=== PATIENT | female | born 1985 | race Caucasian/White ===

== ENCOUNTER 2019-12-22 12:38 | Outpatient (CLI) | payer OTHER ==
--- NOTE | 2019-12-22 14:00 | MRI ---
MRI lumbar spine noncontrast HISTORY: Low back pain with left leg radiculopathy. FINDINGS: The conus medullaris has a normal appearance and terminates at the L1 level. Vertebral body heights and alignment are maintained. Bone marrow signal is within normal limits. T12-L1, L1-2: Central canal and neural foramina are patent. L2-3: Diffuse posterior disc bulge. Mild osteophytosis and posterior ligamentous thickening. Congenit ally small central canal. There is moderate stenosis of the central canal and mild stenosis of each neural foramen. L3-4: Minimal disc bulge. Central canal is patent. Mild to moderate left foraminal stenosis. L4-5: Mild diffuse posterior disc bulge. Thecal sac remains patent. Neural foramina are patent. L5-S1: Small left posterolateral disc protrusion and diffuse posterior disc bulge. There is contact o f each S1 nerve root. Greater on the left than the right. Posterior degenerative changes and diffuse disc bulge are also present. Mild to moderate stenosis of the central canal and each neural f oramen. IMPRESSION : Small left posterior disc protrusion at the lumbosacral junction, slightly compressing the left S1 ne rve root origin. Multilevel degenerative changes, including central canal and foraminal stenoses. Central canal stenos is is most pronounced (moderate) at the L2-3 level.
== END 2019-12-22 12:39 | disposition home or self-care (01) ==
LOC: SCSMRI 12:38
PROVIDERS: ATTEND Family Medicine
DX: M47.26 Other spondylosis with radiculopathy, lumbar region (principal); M51.27 Other intervertebral disc displacement, lumbosacral region; M48.061 Spinal stenosis, lumbar region without neurogenic claudication; M48.07 Spinal stenosis, lumbosacral region
CPT/HCPCS: 72148

== ENCOUNTER 2020-02-03 12:37 | Outpatient (CLI) | payer OTHER ==
--- NOTE | 2020-02-03 14:11 | RAD ---
LUMBAR SPINE 4 VIEWS: Lateral views were obtained with neutral, flexion, and extension. INDICATION: Lumbar pain with radiculopathy. FINDINGS: Lumbar vertebrae maintain normal height and alignment in the lateral projection. Mild loss of disk s pace at L5-S1. The other disk spaces appear normally maintained. No evidence of spondylolisthesis. Alignment appears preserved with flexion and extension. Slight curvature to the left in the AP projection may be positional. IMPRESSION: Mild loss of disk height at L5-S1. The lumbar spine is otherwise unremarkable. POS: AGW
--- NOTE | 2020-02-03 14:13 | RAD ---
CERVICAL SPINE 4 VIEWS: HISTORY: Neck pain. FINDINGS: Cervical vertebrae maintain normal height and alignment. Disk spaces are normally maintained. Poste rior elements appear unremarkable. Tiny anterior osteophytes are seen at the C5-6 level and minimal spurring seen from C4, C5, and C6 ve rtebrae. Alignment appears normally preserved with flexion and extension. IMPRESSION: Mild degenerative spurring is seen as described. Cervical spine otherwise unremarkable. POS: AGW
--- NOTE | 2020-02-03 14:43 | MRI ---
MRI cervical spine noncontrast: 02/03/2020 HISTORY: 34-year-old female with cervicalgia radiating to upper extremities M 54.2 neck pain FINDINGS: Vertebral body heights are maintained. Bone marrow signal is normal. No high-grade disc space narrowi ng at any level. Cervical spinal cord is normal in size and signal. No significant central spinal canal stenosis at any level. Mild to moderate left facet DJD at C4-5 and C5-6. The associated facet b yenifer hypertrophy and small left uncinate process osteophytes at those levels, result in moderate left neural foraminal stenosis at C4-5, but no significant left neural foraminal stenosis at C5-6. Th ere is no significant right-sided neural foraminal stenosis at any level. Small disc protrusions or disc-osteophyte complexes indent the thecal sac at C4-5, C5-6, and C6-7, without causing high-grade c entral spinal canal stenosis. IMPRESSION: 1. Moderate left neural foraminal stenosis at C4-5. 2. 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 3. Mild cervical spondylosis.
== END 2020-02-03 12:38 | disposition home or self-care (01) ==
LOC: SCSMRI 12:37
PROVIDERS: ATTEND Surgery
DX: M54.16 Radiculopathy, lumbar region (principal); M54.2 Cervicalgia; M46.02 Spinal enthesopathy, cervical region; R29.890 Loss of height; M47.812 Spondylosis without myelopathy or radiculopathy, cervical region; M48.02 Spinal stenosis, cervical region
CPT/HCPCS: 72050; 72110; 72141

== ENCOUNTER 2020-03-03 10:45 | Outpatient (CLI) | payer OTHER | END 2020-03-03 10:46 | disposition home or self-care (01) | LOC: DTY/OP 10:45 | PROVIDERS: ATTEND Family Medicine | DX: E66.01 Morbid (severe) obesity due to excess calories (principal); M54.5 Low back pain; G89.29 Other chronic pain | CPT/HCPCS: 97802 ==

== ENCOUNTER 2020-03-15 08:22 | Outpatient (CLI) | payer OTHER ==
[2020-03-15 16:53] LABS: Hemoglobin 13.2 g/dL (12.0-16.0); Mean Corpuscular HGB CONC 32.8 g/dL (32.0-36.0); Mean Corpuscular Hemoglobin 29.8 pg (27.0-31.0); Mean Corpuscular Volume 90.8 fL (78.0-98.0); Mean Platelet Volume 8.6 fL (7.4-10.4); Platelet Count 324 thou/uL (130-400); RBC Distribution Width 11.5 % (11.5-14.5); Red Blood Cell (RBC) Count 4.43 mill/uL (4.20-5.40); White Blood Cell (WBC) Count 10.4 thou/uL (4.8-10.8)
[2020-03-15 16:59] LABS: INR-International Normal Ratio 0.9; Prothrombin Time 12.3 sec (12.0-14.7)
[2020-03-15 17:00] LABS: PTT 34.9 sec (22.9-36.1)
[2020-03-15 17:39] LABS: Anion Gap 13 mmol/L (10-20); BUN (Urea Nitrogen) 12 mg/dL (7.0-18.7); Calc. Creatinine Clearance 0 mL/min (70-130); Carbon Dioxide 25 mmol/L (22-29); Chloride 104 mmol/L (98-107); Estimated GFR-MDRD 79; Glucose 85 mg/dL (70-105); Potassium 4.2 mmol/L (3.5-5.1); Sodium 138 mmol/L (136-145)
--- NOTE | 2020-03-16 09:05 | EKG ---
Test Reason : Blood Pressure : / mmHG Vent. Rate : 095 BPM Atrial Rate : 095 BPM P-R Int : 140 ms QRS Dur : 076 ms QT Int : 356 ms P-R-T Axes : 073 083 042 degrees QTc Int : 447 ms Normal sinus rhythm Normal ECG No previous ECGs available Confirmed by DR. Florence GORMAN ([id number]) on 03/16/2020 9:05:33 AM Referred By: WILLY Confirmed By:DR. Florence GORMAN
[2020-03-16 12:03] LABS: SARS-CoV-2 MS2 Positive; SARS-CoV-2 N Gene Negative; SARS-CoV-2 S Gene Negative; SARS-CoV-2 by NAA Not Detected (NotDetected); SARS-CoV-2 orf1ab Negative
== END 2020-03-15 08:23 | disposition home or self-care (01) ==
LOC: LABBT 08:22
PROVIDERS: ATTEND Surgery
DX: Z01.818 Encounter for other preprocedural examination (principal); Z20.828 Contact with and (suspected) exposure to other viral communicable diseases; M51.16 Intervertebral disc disorders with radiculopathy, lumbar region
CPT/HCPCS: 80048; 85027; 85610; 85730; 87635; 93005; 93010; U0003

== ENCOUNTER 2020-03-18 05:55 | Day surgery (SDC) | payer OTHER ==
[2020-03-17 11:18] VITALS: BMI 37.0
[2020-03-18] MEDS ORDERED: Levofloxacin 500 mg/D5W 100 ml Premix Bag ONE (06:30)
[2020-03-18] MEDS ORDERED: Clindamycin/D5W 900 mg/50 ml Premix Bag ONE (06:30)
[2020-03-18] MEDS ORDERED: Thrombin 5000 UNITS/5 ML VIAL ONE (06:34)
[2020-03-18] MEDS ORDERED: Fentanyl 100 MCG/2 ML VIAL ONE ×4 (06:51→11:18)
[2020-03-18] MEDS ORDERED: Midazolam HCl 2 mg/2 ml Vial ONE (07:16)
[2020-03-18] MEDS ORDERED: traMADol HCl 50 MG TAB PO PRN (09:42)
[2020-03-18] MEDS ORDERED: Acetaminophen 325 MG TAB PO PRN (09:42)
[2020-03-18] MEDS ORDERED: Acetaminophen/Codeine 30-300mg Tablet PO PRN (09:42)
[2020-03-18] MEDS ORDERED: Diazepam 5 MG TAB PO PRN (09:44)
[2020-03-18] MEDS ORDERED: Calcium Carbonate 500 MG ChewTAB PO PRN (09:44)
[2020-03-18] MEDS ORDERED: diphenhydrAMINE 25 MG CAP PO PRN (09:44)
[2020-03-18] MEDS ORDERED: Promethazine HCl 25 MG/ML VIAL IM PRN (09:52)
[2020-03-18] MEDS ORDERED: Promethazine HCl 25 MG/ML VIAL SLOW IVP PRN (09:52)
[2020-03-18] MEDS ORDERED: Ondansetron HCl/PF 4 MG/2 ML Vial IVP PRN (09:52)
[2020-03-18] MEDS ORDERED: HYDROmorphone 0.5 MG/0.5 ML SYRINGE ONE ×4 (10:06→10:36)
[2020-03-18] MEDS ORDERED: HYDROmorphone 2 MG/ML VIAL SLOW IVP PRN (10:45)
[2020-03-18] MEDS: Ondansetron PF 4 MG/2 ML Vial IVP PRN ×2 (13:05→20:36)
[2020-03-18] MEDS: Sodium Chloride 0.9% 1,000 ML IV SCH (13:05)
[2020-03-18] MEDS ORDERED: Rocuronium Bromide 10 MG/ML (10ML VIAL) ONE (13:06)
[2020-03-18] MEDS ORDERED: Ketorolac Tromethamine 30 MG/ML VIAL ONE (13:06)
[2020-03-18] MEDS ORDERED: PROPOFOL 200 MG/20 ML VIAL ONE (13:06)
[2020-03-18] MEDS ORDERED: Lidocaine 1% PF 5 ML VIAL ONE (13:06)
[2020-03-18] MEDS ORDERED: Ondansetron PF 4 MG/2 ML Vial ONE (13:06)
[2020-03-18] MEDS ORDERED: Glycopyrrolate 0.2 MG/ML 5 ML SYRINGE ONE (13:06)
[2020-03-18] MEDS ORDERED: Dexamethasone 20 MG/5 ML VIAL ONE (13:06)
[2020-03-18] MEDS: CEFAZOLIN 2 GM in Premix Bag 1 BAG IVPB SCH ×2 (13:50→21:52)
[2020-03-18] MEDS: HYDROcodone/Acetaminophen 7.5/325 mg Tablet PO PRN ×3 (13:50→21:52)
[2020-03-18] MEDS: tiZANidine HCl 4 MG TAB PO PRN ×2 (14:28→20:34)
[2020-03-18] MEDS: Gabapentin 300 MG CAP PO SCH ×2 (14:28→19:53)
[2020-03-18] MEDS ORDERED: Gabapentin 300 MG CAP PO SCH (15:00)
[2020-03-18] MEDS: Morphine 2 MG/ML VIAL SLOW IVP PRN ×3 (15:53→19:55)
[2020-03-18] MEDS: Diazepam 5 MG TAB PO PRN (17:52)
[2020-03-18] MEDS ORDERED: Non-Formulary Item 1 EACH (Sertraline Hcl [Sertraline Hcl] 50 MG Tablet) PO SCH (21:00)
[2020-03-19] MEDS: Sodium Chloride 0.9% 1,000 ML IV SCH ×2 (00:26→11:49)
[2020-03-19] MEDS: tiZANidine HCl 4 MG TAB PO PRN ×2 (03:49→14:22)
[2020-03-19] MEDS: HYDROcodone/Acetaminophen 7.5/325 mg Tablet PO PRN ×4 (03:49→16:27)
[2020-03-19] MEDS: Morphine 2 MG/ML VIAL SLOW IVP PRN (05:37)
--- NOTE | 2020-03-19 06:01 | OP ---
DATE OF PROCEDURE: 03/18/2020 CARD CUTTER: Katie Small PA-C PREPROCEDURE DIAGNOSES: Low back and left greater than right lower extremity pain with lumbosacral disk extrusion. POSTPROCEDURE DIAGNOSES: Low back and left greater than right lower extremity pain with lumbosacral disk extrusion. PROCEDURES PERFORMED: 1. L5-S1 laminectomy, partial facetectomy, foraminotomy. 2. Use of operative microscope for microdissection. DESCRIPTION OF PROCEDURE: After informed consent was obtained from the patient, the patient was brought to the OR. Proper patient, pause, and identification were carried out. She was placed under excellent general endotracheal anesthesia and positioned prone on the OR table. All appropriate points were padded. We identified the L5-S1 dorsal spines and lamina. A linear maurilio was made. This region was sterilely cleansed, prepared, and draped. Proper patient, pause, and identification were carried out. The wound was then opened with a combination of sharp, monopolar, and blunt dissection. The L5-S1 dorsal spines and lamina were exposed. Localization film confirmed our area of interest. We then performed an L5-S1 laminectomy, partial facetectomy, foraminotomy. Microscope was brought in for microdissection. Working over the shoulder of the traversing left S1 nerve root, the nerve root was retracted and L5-S1 left-sided diskectomy was performed with use of the operative microscope for microdissection. Copious irrigation occurred throughout, maximizing hemostasis. The wound was then closed in anatomic layers following sprinkling of vancomycin powder. The patient emerged from anesthesia. Job ID: [id number]
[2020-03-19] MEDS: Gabapentin 300 MG CAP PO SCH ×2 (08:23→14:22)
--- NOTE | 2020-03-19 10:16 | PRG ---
DATE OF SERVICE: 03/19/2020 Ms. Andrade is doing well on postoperative day 1. Her leg pain has resolved. She has good strength. She is mobilizing. We will discharge. Job ID: [id number]
[2020-03-19] MEDS: Diazepam 5 MG TAB PO PRN (12:33)
[2020-03-19 15:53] VITALS: TEMP 98.7
[2020-03-19 17:25] VITALS: BP 104/65
== END 2020-03-19 17:20 | disposition home or self-care (01) ==
LOC: SDC 05:55 → SURG A 12:28 → SDC 03-19 17:20
PROVIDERS: ATTEND Surgery
PROC: 01NB0ZZ Release Lumbar Nerve, Open Approach (ICD-10-PCS; principal; 2020-03-18)
DX: M51.17 Intervertebral disc disorders with radiculopathy, lumbosacral region (principal); Z79.899 Other long term (current) drug therapy; Z91.040 Latex allergy status; Z91.048 Other nonmedicinal substance allergy status
CPT/HCPCS: 76000; J0690; J1100; J1170; J1885; J1956; J2250; J2270; J2405; J2704; J3010; J3370; J3490; Q0163

== ENCOUNTER 2020-06-29 07:20 | Outpatient (CLI) | payer OTHER ==
[2020-06-29 14:58] LABS: Hemoglobin 12.6 g/dL (12.0-16.0); Mean Corpuscular HGB CONC 31.9 G/DL (32.0-36.0); Mean Corpuscular Hemoglobin 28.4 PG (27.0-33.0); Mean Corpuscular Volume 89.2 fl (80.0-100.0); Mean Platelet Volume 10.6 fl (7.4-10.4); Platelet Count 354 10x3/uL (130-400); RBC Distribution Width 12.7 % (11.5-14.5); Red Blood Cell (RBC) Count 4.43 10x6/uL (3.90-5.20); White Blood Cell (WBC) Count 7.8 10x3/uL (4.5-11.0)
[2020-06-29 15:04] LABS: Anion Gap 15 mmol/L (10-20); BUN (Urea Nitrogen) 7 mg/dL (7.0-18.7); Calc. Creatinine Clearance 0 mL/min (70-130); Calcium 9.1 mg/dL (7.8-10.44); Carbon Dioxide 23 mmol/L (22-29); Chloride 106 mmol/L (98-107); Glucose 128 mg/dL (70-105); Potassium 4.2 mmol/L (3.5-5.1); Sodium 140 mmol/L (136-145)
[2020-06-29 15:15] LABS: PTT 27.6 sec (22.0-33.0); Prothrombin Time 10.4 sec (9.5-12.1)
[2020-06-30 05:16] LABS: SARS-CoV-2 PCR by NAA Not Detected (NotDetected)
== END 2020-06-29 07:21 | disposition home or self-care (01) ==
LOC: LABBT 07:20
PROVIDERS: ATTEND Surgery
DX: Z01.818 Encounter for other preprocedural examination (principal); Z20.822 Contact with and (suspected) exposure to COVID-19; M51.26 Other intervertebral disc displacement, lumbar region
CPT/HCPCS: 80048; 85027; 85610; 85730; 87635; U0003; U0005

== ENCOUNTER 2020-07-02 05:47 | Day surgery (SDC) | payer OTHER ==
[2020-06-30 14:33] VITALS: BMI 36.5
[2020-07-02] MEDS ORDERED: Fentanyl 100 MCG/2 ML VIAL ONE ×4 (06:38→10:37)
[2020-07-02] MEDS ORDERED: Thrombin 5000 UNITS/5 ML VIAL ONE (06:40)
[2020-07-02] MEDS ORDERED: Clindamycin/D5W 900 mg/50 ml Premix Bag ONE ×2 (07:07→14:27)
[2020-07-02] MEDS ORDERED: Levofloxacin 500 mg/D5W 100 ml Premix Bag ONE (07:07)
[2020-07-02] MEDS ORDERED: Glycopyrrolate 0.2 MG/ML 5 ML SYRINGE ONE (09:07)
[2020-07-02] MEDS ORDERED: Rocuronium Bromide 10 MG/ML (10ML VIAL) ONE (09:07)
[2020-07-02] MEDS ORDERED: PROPOFOL 200 MG/20 ML VIAL ONE (09:07)
[2020-07-02] MEDS ORDERED: Dexamethasone 20 MG/5 ML VIAL ONE (09:07)
[2020-07-02] MEDS ORDERED: Ketorolac Tromethamine 30 MG/ML VIAL ONE (09:07)
[2020-07-02] MEDS ORDERED: Ondansetron PF 4 MG/2 ML Vial ONE (09:07)
[2020-07-02] MEDS ORDERED: Lidocaine 1% PF 5 ML VIAL ONE (09:07)
[2020-07-02] MEDS ORDERED: Promethazine HCl 25 MG/ML VIAL ONE (10:18)
[2020-07-02] MEDS ORDERED: Morphine 2 MG/ML VIAL ONE ×2 (12:22→12:43)
[2020-07-02] MEDS ORDERED: Diazepam 5 MG TAB ONE (12:49)
[2020-07-02] MEDS ORDERED: HYDROcodone/Acetaminophen 7.5/325 mg Tablet ONE (15:00)
== END 2020-07-02 16:00 | disposition home or self-care (01) ==
LOC: SDC 05:47 → EEVIPCON 05:47 → SDC 16:00
PROVIDERS: ATTEND Surgery
PROC: 0SB20ZZ Excision of Lumbar Vertebral Disc, Open Approach (ICD-10-PCS; principal; 2020-07-02)
DX: M51.27 Other intervertebral disc displacement, lumbosacral region (principal); M54.16 Radiculopathy, lumbar region; Z79.899 Other long term (current) drug therapy; Z88.0 Allergy status to penicillin; Z91.048 Other nonmedicinal substance allergy status; Z91.040 Latex allergy status
CPT/HCPCS: 76000; J1100; J1885; J1956; J2270; J2405; J2550; J2704; J3010; J3370; J3490